=== PATIENT | male | born 1945 | race Caucasian/White ===

== ENCOUNTER → 2016-12-22 | Outpatient (CLI) | payer MEDICARE, BC ==
--- NOTE | 2016-12-22 12:21 | FL ---
EXAMINATION TYPE: FL barium swallow w video DATE OF EXAM: 12/22/2016 MODIFIED SWALLOW / DEGLUTITION STUDY CLINICAL HISTORY: Dysphagia. TECHNIQUE: Deglutition study is performed utilizing thin liquid barium, honey and nectar thick liqui d barium, barium thick applesauce, and barium coated cracker. 2 minutes and 7 seconds of fluoroscopy time was utilized with 0 images saved. COMPARISON: None. FINDINGS: The oral and pharyngeal phases show satisfactory initiation and propagation with all modali ties tested. Normal mastication is seen with solid modalities tested. Minimal transient penetration was seen with the nectar thick liquid barium consistency. There is no evidence of penetration or asp iration with the remaining modality tested. No significant pharyngeal residue was appreciated. Addit ionally numerous large anterior bridging osteophytes are seen of the cervical spine in addition to mu ltilevel degenerative disc disease. These are noted to place impression upon and narrowing of the cer vical esophagus during passage of contrast through the cervical esophagus without focal stricture. IMPRESSION: 1. Minimal transient penetration with a single consistency. No aspiration. Please refer to speech th erapist notes for further details if necessary. 2. Numerous protuberant anterior bridging osteophytes of the cervical spine place impression upon and narrow the cervical esophagus.
== END | disposition home or self-care (01) ==
LOC: RADFLMAIN 11:38
PROVIDERS: ATTEND Family Medicine
DX: K22.2 Esophageal obstruction (principal)
CPT/HCPCS: 74230